=== PATIENT | male | born 1945 | race African-American/Black ===

== ENCOUNTER 2017-07-14 08:40 | Emergency (ER) | payer MEDICARE ==
[2017-07-14 09:08] LABS: #Eosinphils 0.2 thou/uL (0.0-0.7); #Lymphocytes 1.5 thou/uL (1.20-3.40); #Monocytes 0.4 thou/uL (0.11-0.59); #Neutrophils 3.8 thou/uL (1.40-6.50); %Basophils 0.6 % (0.0-1.0); %Lymphocytes 25.4 % (21.0-51.0); Mean Corpuscular HGB CONC 32.7 g/dL (32.0-36.0); Mean Corpuscular Volume 94.7 fl (80.0-94.0); Mean Platelet Volume 7.6 fL (7.4-10.4); Platelet Count 242 thou/uL (130-400); RBC Distribution Width 12.5 % (11.5-14.5)
--- NOTE | 2017-07-14 09:16 | RAD ---
PORTABLE CHEST: Date: 07/14/17 HISTORY: Chest pain. FINDINGS: Lung giron are clear. Heart and mediastinum appear normal. IMPRESSION: No acute findings. POS: [facility]
[2017-07-14 09:41] LABS: ALT (SGPT) 16 U/L (8-55); AST (SGOT) 20 U/L (5-34); Alkaline Phosphatase 76 U/L (40-150); Anion Gap 14 mmol/L (10-20); BUN (Urea Nitrogen) 14 mg/dL (8.4-25.7); Bilirubin, Total 0.5 mg/dL (0.2-1.2); CK (CPK) 86 U/L (30-200); Calc. Creatinine Clearance 0 mL/min (70-130); Calcium 9.4 mg/dL (7.8-10.44); Carbon Dioxide 22 mmol/L (23-31); Chloride 106 mmol/L (98-107); Estimated GFR-MDRD 66; Globulin 3.3 g/dL (2.4-3.5); Glucose 103 mg/dL (83-110); Lipase 59 U/L (8-78); Potassium 4.2 mmol/L (3.5-5.1); Protein, Total 7.4 g/dL (5.8-8.1); Sodium 138 mmol/L (136-145); Troponin I 0.012 ng/mL (< 0.028)
--- NOTE | 2017-07-14 11:19 | CT ---
CT ABDOMEN AND PELVIS WITH CONTRAST: Date: 07/14/17 Multiple axial tomograms obtained of abdomen and pelvis with IV enhancement. HISTORY: Right lower quadrant abdominal pain. FINDINGS: Lung bases clear. Liver, spleen, and pancreas are unremarkable. Adrenal glands appear normal. There are multiple bilateral renal cysts. The largest is seen from the posterior right kidney measuri ng up to 5.0 cm. These numerous cysts were present on the prior CT of 06/13/14 and appear stable. The re is no hydronephrosis. Urinary bladder unremarkable. Small bowel loops are normal. The appendix is opacified and appears normal. Colon is unremarkable. Scattered diverticula are seen. No CT evidence of diverticulitis. Aorta is normal caliber with atherosclerotic calcification noted. N o adenopathy identified. IMPRESSION: 1. Numerous bilateral renal cysts. 2. Mild diverticulosis without evidence of diverticulitis. 3. No evidence of acute process. POS: [facility]
[2017-07-14 12:08] LABS: Bilirubin Negative (Negative); Blood, Urine Negative (Negative); Clarity CLEAR (Clear); Glucose, Urine (Dipstick) Negative (Negative); Leukocyte Negative (Negative); Nitrite Negative (Negative); Protein, Urine (Dipstick) Trace mg/dL (Neg-Trace); Specific Gravity, Urine 1.018 (1.002-1.036); Urobilinogen 0.2 mg/dL (0.2-1.0); pH, Urine 7.5 (5.0-9.0)
[2017-07-14] MEDS ORDERED: Iopamidol 370 76% 100 ML VIAL ONE (16:20)
[2017-07-14] MEDS ORDERED: ISOVUE-370 76%-LOCM 1 ML ONE (16:20)
--- NOTE | 2017-08-02 16:10 | EKG ---
Test Reason : Blood Pressure : / mmHG Vent. Rate : 056 BPM Atrial Rate : 056 BPM P-R Int : 136 ms QRS Dur : 116 ms QT Int : 470 ms P-R-T Axes : 066 -51 015 degrees QTc Int : 453 ms Sinus bradycardia Left anterior fascicular block Left ventricular hypertrophy with QRS widening Abnormal ECG Confirmed by MARK DOW M.D. ([id number]), editorial writer JUANCARLOS RAMOS ([id number]) on 08/02/2017 4:09:39 PM Referred By: DR DOW Confirmed By:MARK DOW M.D.
== END 2017-07-14 12:36 | disposition home or self-care (01) ==
LOC: ERS 08:40
DX: R10.32 Left lower quadrant pain (principal); E11.9 Type 2 diabetes mellitus without complications; E78.5 Hyperlipidemia, unspecified; I10 Essential (primary) hypertension; Z79.84 Long term (current) use of oral hypoglycemic drugs; Z79.82 Long term (current) use of aspirin; Z79.899 Other long term (current) drug therapy
CPT/HCPCS: 36415; 36416; 71045; 74177; 80053; 81003; 82550; 82553; 83690; 84484; 85025; 85379; 93005; 94760

== ENCOUNTER 2022-04-08 11:36 | Emergency (ER) | payer MEDICARE ==
[2022-04-08] MEDS ORDERED: HYDROcodone/Acetaminophen 5/325 mg Tablet ONE (13:19)
== END 2022-04-08 13:29 | disposition home or self-care (01) ==
LOC: ERS 11:36
DX: M19.011 Primary osteoarthritis, right shoulder (principal); E11.9 Type 2 diabetes mellitus without complications; N40.0 Benign prostatic hyperplasia without lower urinary tract symptoms; E78.5 Hyperlipidemia, unspecified; I10 Essential (primary) hypertension